=== PATIENT | female | born 1960 | race Hispanic/Latino ===

== ENCOUNTER → 2017-03-29 | Outpatient (CLI) | payer BC ==
--- NOTE | 2017-03-29 10:58 | MAM ---
History: Well woman exam. Date of exam: 03/29/2017 Services provided: Bilateral full field digital screening mammography. CAD, the images were reviewed with R2 computer aided detection. FINDINGS: Glandular tissue is scattered glandular parenchymal pattern with increased mammographic density. This represents baseline study. No dominant mass, architectural distortion or clustered microcalcification. Suspected intramammary lymph node right breast 9:00. Vascular calcifications bilaterally. IMPRESSION: Benign exam Recommendation: Routine annual mammography BIRAD CATEGORY: 2 BENIGN Electronically signed by: Lillie Lester MD 03/29/2017 10:58 AM CDT Workstation: [facility]
== END | disposition home or self-care (01) ==
LOC: LAB.O 08:45
PROVIDERS: ATTEND Internal Medicine
DX: Z12.31 Encounter for screening mammogram for malignant neoplasm of breast (principal); I50.23 Acute on chronic systolic (congestive) heart failure; I25.10 Atherosclerotic heart disease of native coronary artery without angina pectoris; E11.9 Type 2 diabetes mellitus without complications; E78.5 Hyperlipidemia, unspecified; I10 Essential (primary) hypertension
CPT/HCPCS: 36415; 80053; 80061; 82043; 82570; 83036; 84443; 85025; G0202

== ENCOUNTER 2017-04-08 22:37 | Observation (INO) | payer BC ==
--- NOTE | 2017-04-08 22:41 | ED.PDOC ---
History of Present Illness - General Time Seen by Provider: 04/08/17 22:41 Source: EMS notes reviewed, family Exam Limitations: no limitations - History of Present Illness Initial Comments: Radha Almodovar 56 y/o female stated while sitting in her sofa tonight she had onset of sharp left sided chest pains radiating to her left arm was sob no diaphoresis.Had cardiac stent on her lad in January 2017 accdg to son family doesnt want their mom to be informed of her heart problems. Timing/Duration: 1-3 hours, gone now - almost Severity/Quality: moderate, sharp Location: central Chest Pain Radiation: arms - left Prior Chest Pain/Cardiac Workup: cardiac cath, other - cardiac stent Worsening Factors: nothing Nitro Today/Relief: 0.4 mg x 2, provided by EMS Aspirin Treatment Today: 81 mg x 4, provided by EMS Associated Symptoms: shortness of breath Allergies/Adverse Reactions: Allergies NO KNOWN ALLERGY Allergy (Verified 04/08/17 23:30) Home Medications: Ambulatory Orders Amlodipine Besylate 10 mg PO DAILY 04/08/17 Aspirin [Baby Aspirin] 81 mg PO DAILY 04/08/17 Carvedilol [Coreg] 3.125 mg PO BID 04/08/17 Clopidogrel Bisulfate [Plavix] 75 mg PO DAILY 04/08/17 Insulin Detemir [Levemir] 35 unit SUBCU BEDTIME 04/08/17 Insulin Detemir [Levemir] 40 unit SUBCU AC 04/08/17 Insulin Lispro [HumaLOG] 0 unit SUBCU ACHS 04/08/17 Lisinopril 20 mg PO DAILY 04/08/17 Potassium Chloride [Micro-K] 10 meq PO DAILY 04/08/17 Simvastatin 40 mg PO BEDTIME 04/08/17 Review of Systems - Review of Systems Constitutional: States: no symptoms reported EENTM: States: no symptoms reported Respiratory: States: no symptoms reported Cardiology: States: see HPI Gastrointestinal/Abdominal: States: no symptoms reported Genitourinary: States: no symptoms reported Musculoskeletal: States: no symptoms reported Skin: States: no symptoms reported Neurological: States: no symptoms reported Endocrine: States: no symptoms reported Hematologic/Lymphatic: States: no symptoms reported Past Medical History (General) - Patient Medical History Hx Cardiac Disorders: Yes Hx Congestive Heart Failure: Yes Hx Hypertension: Yes Hx Diabetes: Yes Surgical History: other - cardiac stent, - Social History Hx Tobacco Use: No Hx Chewing Tobacco Use: No Hx Alcohol Use: No Hx Substance Use: No Hx Substance Use Treatment: No Hx Depression: No Feels Threatened In Home Enviroment: No Feels Threatened In a Relationship: No Hx Physical Abuse: No Hx Emotional Abuse: No Hx Suspected Abuse: No - Activities of Daily Living Patient Lives Alone: No - family Grooming Ability: Independent Eating (Feeding) Ability: Independent Toileting Ability: Independent - Female History Patient : No Family Medical History - Family History Mother Living Status: Hx Family Hypertension: Yes Hx Family Diabetes: Yes - parents Hx Family Cancer: Yes - breast-sisters Physical Exam - Physical Exam General Appearance: Alert, Comfortable, No apparent distress Eyes, Ears, Nose, Throat Exam: PERRL/EOMI, normal ENT inspection, TMs normal, pharynx normal Neck: non-tender, full range of motion, supple, normal inspection Respiratory: chest non-tender, lungs clear, normal breath sounds, no respiratory distress Cardiovascular/Chest: normal peripheral pulses, regular rate, rhythm, no edema, no gallop, no murmur Peripheral Pulses: radial,right: 2+, radial,left: 2+ Gastrointestinal/Abdominal: normal bowel sounds, non tender, soft, no organomegaly Extremity: normal range of motion, non-tender, no calf tenderness, pedal edema - 2+ Neurologic: alert, oriented x 3 Skin Exam: normal color, warm/dry Lymphatic: no adenopathy Progress - Progress Progress: 04/08/17 23:47 Vital Signs - 8 hr 04/08/17 22:40 Temperature 98.0 F Pulse Rate [ 89 monitor] Respiratory 20 Rate Blood Pressure 143/71 [Left Arm] O2 Sat by Pulse 96 Oximetry - Results/Orders Results/Orders: 04/08/17 22:45 EKG STAT Laboratory Results - last 24 hr 04/08/17 04/08/17 04/08/17 22:35 22:35 23:55 WBC 7.8 RBC 4.25 Hgb 12.2 Hct 37.1 MCV 87.2 MCH 28.8 MCHC 33.0 RDW 13.8 Plt Count 236 MPV 9.4 Absolute Neuts (auto) 3.90 Absolute Lymphs (auto) 2.90 Absolute Monos (auto) 0.60 Absolute Eos (auto) 0.30 Absolute Basos (auto) 0.10 Neutrophils % 49.9 Lymphocytes % 37.0 Monocytes % 8.0 Eosinophils % 4.4 Basophils % 0.7 PT 10.3 INR 0.910 PTT (SP) 29.6 D-Dimer, Quantitative < 230 Sodium 133 L Potassium 4.4 Chloride 98 L Carbon Dioxide 26 Anion Gap 13.4 BUN 31 H Creatinine 1.30 BUN/Creatinine Ratio 23.8 H Random Glucose 145 H Serum Osmolality 275.5 Calcium 9.2 Magnesium 2.0 Total Bilirubin 0.4 Direct Bilirubin < 0.1 Indirect Bilirubin 0.3 AST 20 ALT 18 Alkaline Phosphatase 79 Creatine Kinase 184 H CK-MB (CK-2) 4.8 H* CK-MB (CK-2) % 2.61 Troponin I 0.03 0.05 B-Natriuretic Peptide 858.0 H* Serum Total Protein 7.6 Albumin 4.0 - EKG/XRAY/CT EKG: LBBB Comments: heart rate-89 XRAY: chest - interstitial infiltrate bases/radiologist Departure - Departure Clinical Impression: Chest pain Qualifiers: Chest pain type: precordial chest pain Qualified Code(s): R07.2 - Precordial pain Coronary artery disease Qualifiers: Coronary Disease-Associated Artery/Lesion type: [place] artery [place] vs. transplanted heart: [place] heart Associated angina: with unspecified angina Qualified Code(s): I25.119 - Atherosclerotic heart disease of [place] coronary artery with unspecified angina pectoris Congestive heart failure Qualifiers: Congestive heart failure type: combined Congestive heart failure chronicity: unspecified congestive heart failure chronicity Qualified Code(s): I50.40 - Unspecified combined systolic (congestive) and diastolic (congestive) heart failure Time of Disposition: :08 - D/W Jazmine De La Paz ANP-Hospitalist Disposition: Admit Patient Condition: Fair Home Medications: Ambulatory Orders Amlodipine Besylate 10 mg PO DAILY 04/08/17 Aspirin [Baby Aspirin] 81 mg PO DAILY 04/08/17 Carvedilol [Coreg] 3.125 mg PO BID 04/08/17 Clopidogrel Bisulfate [Plavix] 75 mg PO DAILY 04/08/17 Insulin Detemir [Levemir] 35 unit SUBCU BEDTIME 04/08/17 Insulin Detemir [Levemir] 40 unit SUBCU AC 04/08/17 Insulin Lispro [HumaLOG] 0 unit SUBCU ACHS 04/08/17 Lisinopril 20 mg PO DAILY 04/08/17 Potassium Chloride [Micro-K] 10 meq PO DAILY 04/08/17 Simvastatin 40 mg PO BEDTIME 04/08/17 Decision To Admit - Decistion To Admit Decision to Admit Reason: Admit from ER Decision to Admit Date: 04/09/17 Decision to Admit Time: 01:04
--- NOTE | 2017-04-08 23:16 | RAD ---
EXAM DESCRIPTION: Chest,1 View CLINICAL HISTORY: 56 years Female pain COMPARISON: 07/15/2009 FINDINGS: Heart size is stable. Mild perihilar density and peribronchial or cuffing with some increased density in the lung bases. Question soft tissue artifact versus small amount of developing interstitial infiltrate. Favor the latter. No pleural fluid or consolidation noted. IMPRESSION: Peribronchial or cuffing with mild patchy perihilar density and increased interstitial markings in the lung bases. Findings are concerning for developing interstitial edema or infiltrate Electronically signed by: Melissa Erwin 04/08/2017 11:16 PM CDT
--- NOTE | 2017-04-09 01:18 | HP ---
SUPERVISING PHYSICIAN: Brown Serrano MD CHIEF COMPLAINT: Chest pain. HISTORY OF PRESENT ILLNESS: This is a 56-year-old male patient who was taking her nightly medications on the night prior to admission and had a sudden onset of midsternal chest pain. There was no diaphoresis, but she was very short of breath. She took a breathing treatment and it did not help. She was at rest. Changing positions did not help it and she called her son. EMS was called and she came to the Emergency Room. In the Emergency Room, her initial cardiac enzymes had a troponin of 0.03. An hour later, it went to 0.05. Her CK-MB was 4.8. Her creatinine kinase was 184. She no longer had any chest pain. She did have a bundle branch block on her EKG, but no other changes. She has a history of a stent to the left anterior descending in January of 2017. She sees Dr. Abdul in [place] as her workers' compensation claims examiner. I was called for admission to the hospital. PAST MEDICAL HISTORY: 1. Stent to left anterior descending in January 2017. 2. Hyperlipidemia. 3. Hypertension. 4. Diabetes mellitus, type 2. 5. Coronary artery disease. 6. Congestive heart failure of unknown etiology and no current echocardiogram on chart for review. 7. Dysrhythmias. PAST SURGICAL HISTORY: 1. Stent to the left anterior descending in January of 2017. 2. Hysterectomy. OUTPATIENT MEDICATIONS: Per the EMR. ALLERGIES: NO KNOWN DRUG ALLERGIES. SOCIAL HISTORY: She denies smoking, ETOH or illicit drug use. She is . She has four children. She lives at home. REVIEW OF SYSTEMS: Twelve-point review of systems is negative including no complaints of chest pain at this time. PHYSICAL EXAMINATION: VITAL SIGNS: Afebrile. Heart rate 66. Blood pressure 133/78. Respiratory rate 20. O2 saturation 98% on room air. GENERAL: This is a 56-year-old female patient who is lying in her hospital bed. She is in no acute distress. HEENT: Normocephalic, atraumatic. Pupils are equal and reactive. Oropharynx is clear. Oral mucous membranes are moist. NECK: Supple without mass. No jugular venous distention. RESPIRATORY: Clear to auscultation bilaterally. CHEST: There is equal rise and fall of the chest with inspiration and expiration. CARDIOVASCULAR: Regular rate and rhythm. ABDOMEN: Soft, nondistended, nontender. Bowel sounds are positive. EXTREMITIES: No cyanosis, clubbing or edema. NEUROLOGIC: Awake, alert and oriented times three. SKIN: There are no lesions or rashes. LABORATORY: CBC is basically within normal limits. Blood sugars have run from 94 to 174. Triglycerides are slightly elevated at 181. BUN slightly elevated at 32. BNP 858. Chest x-ray shows peribronchial cupping with mild patchy perihilar density and increased interstitial markings in the lung bases. Findings are concerning for developing interstitial edema or infiltrate. All other labs and films have been reviewed via the EMR. ASSESSMENT: 1. Chest pain with a significant history of coronary artery disease. 2. Elevated BNP with concerns for early developing congestive heart failure. 3. Congestive heart failure of unknown etiology with no present echocardiogram available for review. 4. Hyperlipidemia. 5. Hypertension. 6. Diabetes mellitus, type 2. 7. Dysrhythmias. PLAN: We will place the patient in observation in the hospital. I have initiated chest pain guidelines. We will do her serial cardiac enzymes as well as serial EKGs. I have restarted her home medications. I have given her an extra dose of Lasix today. She is on no diuretics, so she may need to be started on something, but she does see her workers' compensation claims examiner on 04/23/17. We will monitor her rhythms closely on the loss control manager. We will monitor the patient closely and follow as needed. Dr. Serrano is the collaborating physician and available for consultation. #[id number] [facility]
[2017-04-09] MEDS ORDERED: ACETAMINOPHEN 325 MG TAB PO PRN (01:32)
[2017-04-09] MEDS ORDERED: NITROGLYCERIN 0.4 MG 25 EA TAB SL PRN (01:32)
[2017-04-09] MEDS ORDERED: MORPHINE SULFATE INJ 10 MG/ML VIAL IV PRN (01:32)
[2017-04-09] MEDS ORDERED: SODIUM CHLORIDE 0.9% (FLUSH) 10 ML SYG IV PRN (01:32)
[2017-04-09] MEDS ORDERED: DEXTROSE 50% 25 GM/50 ML SYG IV PRN (01:41)
[2017-04-09] MEDS ORDERED: GLUCAGON INJ 1 MG VIAL SUBCU PRN (01:41)
[2017-04-09] MEDS ORDERED: IV SET AND CAP CHANGE INJ INJ SCH (02:00)
[2017-04-09] MEDS: PANTOPRAZOLE SODIUM TAB 40 MG PO SCH (05:31)
[2017-04-09] MEDS: INSULIN LISPRO 100 UNITS/ML PEN SUBCU SCH ×4 (07:30→21:27)
[2017-04-09] MEDS ORDERED: LISINOPRIL 10 MG TAB ONE (07:46)
[2017-04-09] MEDS ORDERED: amLODIPine BESYLATE 5 MG TAB ONE (07:47)
[2017-04-09] MEDS ORDERED: POTASSIUM CHLORIDE 10 MEQ TAB PO ONE (07:47)
[2017-04-09] MEDS ORDERED: ASPIRIN TABLET 325 MG TAB ONE (07:47)
[2017-04-09] MEDS: POTASSIUM CHLORIDE 10 MEQ TAB PO SCH (08:30)
[2017-04-09] MEDS: amLODIPine BESYLATE 5 MG TAB PO SCH (08:30)
[2017-04-09] MEDS: ASPIRIN TABLET 325 MG TAB PO SCH (08:30)
[2017-04-09] MEDS: CLOPIDOGREL 75 MG TAB PO SCH (08:30)
[2017-04-09] MEDS: SODIUM CHLORIDE 0.9% (FLUSH) 10 ML SYG IV SCH ×2 (08:30→21:31)
[2017-04-09] MEDS: LISINOPRIL 10 MG TAB PO SCH (08:30)
[2017-04-09] MEDS: CARVEDILOL 3.125 MG TAB PO SCH ×2 (08:34→21:31)
[2017-04-09] MEDS ORDERED: FUROSEMIDE INJ 20 MG/2 ML VIAL IV ONE (13:22)
[2017-04-09] MEDS ORDERED: FUROSEMIDE INJ 20 MG/2 ML VIAL ONE (16:07)
[2017-04-09] MEDS ORDERED: SIMVASTATIN 20 MG TAB PO SCH (21:00)
--- NOTE | 2017-04-10 00:43 | PCM.CORE ---
Physician DVT/VTE - Nurse DVT Assessment & Total Each Risk Factor Represents 1 Point: Age 41-60, Minor Surgery Planned Each Risk Factor is 1 Point: Obesity (BMI >25) DVT Assessment Score: 3 - 3-4 High Risk Treatments: Early Ambulation *, Sequential Compression Device
[2017-04-10] MEDS: PANTOPRAZOLE SODIUM TAB 40 MG PO SCH (06:34)
[2017-04-10] MEDS: INSULIN LISPRO 100 UNITS/ML PEN SUBCU SCH ×2 (07:44→11:36)
[2017-04-10] MEDS ORDERED: ASPIRIN TABLET 325 MG TAB PO SCH (09:00)
[2017-04-10] MEDS: ASPIRIN TABLET 325 MG TAB PO SCH (09:23)
[2017-04-10] MEDS: amLODIPine BESYLATE 5 MG TAB PO SCH (09:23)
[2017-04-10] MEDS: CARVEDILOL 3.125 MG TAB PO SCH (09:23)
[2017-04-10] MEDS: CLOPIDOGREL 75 MG TAB PO SCH (09:23)
[2017-04-10] MEDS: POTASSIUM CHLORIDE 10 MEQ TAB PO SCH (09:23)
[2017-04-10] MEDS: LISINOPRIL 10 MG TAB PO SCH (09:23)
[2017-04-10] MEDS: SODIUM CHLORIDE 0.9% (FLUSH) 10 ML SYG IV SCH (09:25)
[2017-04-10 10:36] VITALS: TEMP 97.9
[2017-04-10 14:15] VITALS: BP 128/70; O2SAT 98
--- NOTE | 2017-04-10 15:18 | DS ---
DISCHARGE DIAGNOSIS: 1. Acute congestive heart failure, unknown systolic or diastolic but presumed to be systolic. She does have a geriatric physical therapist and her last echocardiogram is not available to us at this time. We do not have the capability to do an echocardiogram today. 2. Chest pain listed as a diagnosis on admission, patient is a Mac[place]-speaking patient and upon conversation with me today with her daughter genet , she states she had no chest pain whatsoever but did have shortness of breath. She has had no shortness of breath or chest pain since the time of admission. She did have an elevated troponin that went up to 0.31 and has come back down to 0.23. Her EKG shows a left bundle branch block. 3. Coronary artery disease with history of a previous stent in the left anterior descending. 4. Hypertension. 5. Diabetes mellitus, type 2. 6. Hyperlipidemia. HISTORY OF PRESENT ILLNESS: This is a 56-year-old male patient who was taking her nightly medications on the night prior to admission and had a sudden onset of midsternal chest pain. There was no diaphoresis, but she was very short of breath. She took a breathing treatment and it did not help. She was at rest. Changing positions did not help it and she called her son. EMS was called and she came to the Emergency Room. In the Emergency Room, her initial cardiac enzymes had a troponin of 0.03. An hour later, it went to 0.05. Her CK-MB was 4.8. Her creatinine kinase was 184. She no longer had any chest pain. She did have a bundle branch block on her EKG, but no other changes. She has a history of a stent to the left anterior descending in January of 2017. She sees Dr. Peralta in [place] as her geriatric physical therapist. I was called for admission to the hospital. HOSPITAL COURSE: The patient was admitted to the hospital and subsequent cardiac enzymes showed a troponin that went up to 0.31 and has gone back down to 0.23. The patient expressed no chest pain throughout her stay here. Her breathing is doing much better and she has no shortness of breath. Her laboratory studies have shown unremarkable electrolytes. She has had a significant negative fluid balance of more than 2 liters and she is breathing much better and asking to go home. DISPOSITION: The patient will be discharged home. She will be asked to followup with her geriatric physical therapist, Dr. Abdul, in [facility] as soon as possible. She has an appointment on May 03 currently and her daughter will call tomorrow as today is a holiday, and see if she can get that appointment moved sooner. The family has been instructed to come immediately back if she experiences more shortness of breath or any type of chest pain. The patient does take Plavix and aspirin and she will continue that. Her vital signs have been very good here with her blood pressure running in the 120s, oxygen saturation 100% on room air. I did discuss the case with the doctor newsperson for Dr. Peralta today, who did agree with our plan. #[id number] MTDD
== END 2017-04-10 15:30 | disposition home or self-care (01) ==
LOC: ER 22:37 → MS 04-09 01:18
PROVIDERS: ADMIT Nurse Practitioner Acute Care; ATTEND Family Medicine
DX: I11.0 Hypertensive heart disease with heart failure (principal); I50.9 Heart failure, unspecified; R07.2 Precordial pain; I44.7 Left bundle-branch block, unspecified; E11.9 Type 2 diabetes mellitus without complications; E78.5 Hyperlipidemia, unspecified; I25.10 Atherosclerotic heart disease of native coronary artery without angina pectoris; I49.9 Cardiac arrhythmia, unspecified; Z95.5 Presence of coronary angioplasty implant and graft; Z79.4 Long term (current) use of insulin; Z79.82 Long term (current) use of aspirin; Z79.02 Long term (current) use of antithrombotics/antiplatelets; Z79.899 Other long term (current) drug therapy; Z90.710 Acquired absence of both cervix and uterus
CPT/HCPCS: 36415 ×6; 36416 ×7; 71010; 80048 ×3; 80061; 80076; 82550 ×4; 82553 ×4; 82948 ×7; 83880; 84484 ×5; 85025 ×2; 85379; 85610; 85730; 93005 ×2; 94760 ×7; G0378; J1815; J1940

== ENCOUNTER → 2018-07-31 | Outpatient (CLI) | payer BC ==
--- NOTE | 2018-08-02 08:00 | MAM ---
EXAM DESCRIPTION: 3D Screening BILATERAL : Digital Mammography. CLINICAL HISTORY: 57 years Female SCREEN . No complaints or personal history of breast cancer. Sister with breast cancer. Childbirth. Postmenopausal. No HRT. Left chest pacemaker. Lifetime risk of developing breast cancer (Tyrer-Cuzick model)(%): 10.5. COMPARISON: 2-D digital screening bilateral mammography 03/29/2017.. TECHNIQUE: Bilateral CC and MLO projection full-field images, Digital tomosynthesis mammographic technique. Bilateral digital 2-D full-field MLO images. CAD not utilized. Note: Technologist could not image left pectoral muscle due to pacemaker. FINDINGS: The breast parenchymal density pattern is: Heterogeneously dense breast tissue, which may obscure small masses. No skin thickening or nipple retraction. Densest tissue centrally in the breast. Bilateral solitary microcalcifications. Bilateral vascular calcifications. Right axillary lymph nodes. Focal asymmetry versus small mass density at the 12:00 position of the left breast 11 cm from the nipple. Not well seen on the prior study. No new focal, stellate mass or density, focal asymmetry , and no suspicious microcalcifications right breast. IMPRESSION: BI-RADS CATEGORY: 0 - INCOMPLETE- Need additional imaging evaluation. FOLLOW-UP: Recall for additional imaging: Orthogonal diagnostic images of the left breast. Targeted left breast ultrasound if indicated by the diagnostic images.. Written communication concerning the IMPRESSION and Follow-up, will be mailed to the patient and referring health care provider. Electronically signed by: Galen Izaguirre MD 08/02/2018 7:58 AM CDT
== END ==
LOC: MAMMO 12:30
DX: Z12.31 Encounter for screening mammogram for malignant neoplasm of breast (principal)

== ENCOUNTER → 2018-09-17 | Outpatient (CLI) | payer BC ==
--- NOTE | 2018-09-18 12:24 | US ---
EXAM DESCRIPTION: Breast,Left: Ultrasound CLINICAL HISTORY: 58 yearsFemaleABNORMAL MAMMO. Focal asymmetry versus mass posterior left breast. COMPARISON: Digital screening tomosynthesis bilateral breasts 07/31/2018. TECHNIQUE: Transcutaneous scanning of the leftbreast utilizing cisneros-scale and Doppler modes. Scanning performed by the preparatory technician with Dr. Izaguirre observation. Patient with [place]-speaking. Patient's daughter as heater planer operator. FINDINGS: Scanning of the upper left breast posterior middle thirds. Emphasis at the 12:00 position 9 cm from the nipple. Mostly echogenic fibroglandular echotexture with minimal fatty echotexture. No dominant solid mass or distinct cyst. No parenchymal edema or large calcifications. No overlying skin changes. Normal vascularity. IMPRESSION: 1. Bi-Rads Category 2: Benign. 2. No digital diagnostic mammography recommended today. Please refer to bilateral digital screening tomosynthesis examination and report on 07/31/2018. The FINDINGS and the FOLLOW-UP plan were reviewed in person with the patient , via heater planer operator, after the examination. Written communication explaining the IMPRESSION and FOLLOW-UP will be mailed to the patient and referring care provider. Electronically signed by: Galen Izaguirre MD 09/18/2018 12:23 PM CORPSMAN
--- NOTE | 2018-09-18 17:04 | MAM ---
EXAM DESCRIPTION: 3D Diagnostic, Left: Digital Mammography CLINICAL HISTORY: 58 yearsFemaleABNORMAL MAMMOGRAM . Focal asymmetry posterior superior left breast.. COMPARISON: Bilateral screening digital breast tomosynthesis 07/31/2018.. TECHNIQUE: Left LM projection full-field images, digital mammographic tomosynthesis technique. CAD not utilized. FINDINGS: The breast parenchymal density pattern is: Heterogeneously dense breast tissue, which may obscure small masses. No skin thickening or nipple retraction dense fibroglandular elements predominantly in the middle third of the left breast extending medially and laterally. Vascular calcifications. Scattered solitary microcalcifications. The region of interest in the posterior upper left breast is not as well-defined by this lateral medial tomosynthesis today. ULTRASOUND: Scanning of the upper left breast posterior middle thirds. Emphasis at the 12:00 position 9 cm from the nipple. Mostly echogenic fibroglandular echotexture with minimal fatty echotexture. No dominant solid mass or distinct cyst. No parenchymal edema or large calcifications. No overlying skin changes. Normal vascularity. Pacemaker power pack obscures a segment of the upper posterior breast. IMPRESSION: Benign exam. BIRAD CATEGORY: 2 BENIGN FINDINGS. RECOMMENDATIONS: FOLLOW UP: Return to routine digital bilateral mammographic screening, one year interval from September 2018. The FINDINGS and the FOLLOW-UP plan were reviewed in person with the patient , via tooth cutter spur, after the examination. Written communication explaining the IMPRESSION and FOLLOW-UP will be mailed to the patient and referring care provider. According to the [employer], yearly mammograms are recommended starting at age 40 and continuing as long as a woman is in good health. Any breast change noted on a breast self-exam should be reported promptly to the patient's healthcare provider. Breast MRI is recommended for women with an approximately 20-25% or greater lifetime risk of breast cancer, including women with a strong family history of breast or ovarian cancer and women who have been treated for Hodgkin's disease. A negative mammographic report should not delay tissue diagnosis in patients with significant clinical history or physical findings. Extremely dense breast tissue limits the sensitivity of digital mammography. Electronically signed by: Galen Izaguirre MD 09/18/2018 5:03 PM PRE K LEAD TEACHER
== END ==
LOC: MAMMO 15:45
PROVIDERS: ATTEND Internal Medicine
DX: R92.8 Other abnormal and inconclusive findings on diagnostic imaging of breast (principal)
CPT/HCPCS: 76641; 77065; G0279